=== PATIENT | female | born 2000 | race Caucasian/White ===

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

== ENCOUNTER 2018-03-23 15:36 | Emergency (ER) | payer BC ==
--- NOTE | 2018-03-23 16:52 | EDPHY ---
H & P Time Seen by Provider: 03/23/18 16:39 HPI/ROS: CHIEF COMPLAINT: Shortness of breath HISTORY OF PRESENT ILLNESS: Patient is a 18-year-old female who presents emergency department with shortness of breath since 09/27/2016. At that time she was diagnosed with mononucleosis. She subsequently developed the bacterial pneumonia. She was treated with antibiotics. She was subsequently diagnosed with bronchitis. She has had ongoing shortness of breath since that time. She is scheduled for primary care physician visit on Wednesday. She was seen at urgent care on 03/21/2018 and had a chest x-ray. This was negative. She was told that her incentive spirometry reading was low and she was placed on an albuterol inhaler. She states this helped a little bit. Patient denies fevers or chills. No abdominal pain. No chest pain. The patient has no leg pain or swelling. No recent travel. REVIEW OF SYSTEMS: 10 systems were reveiwed and are negative with the exception of the elements mentioned in the history of present illness. Past Medical/Surgical History: Includes mononucleosis, pneumonia Social history: The patient does not smoke. Smoking Status: Never smoked Physical Exam: 36.8, 105/64, 83, 16, 100% on room air GENERAL: Well-appearing, in no acute distress, alert. HEENT: Eyes normal to inspection, normal pharynx, no signs of dehydration. Normal NECK: Normal, supple. RESPIRATORY: Clear to auscultation bilaterally, no rales, rhonchi or wheezing. Normal CVS: Regular rate and rhythm, no rubs, murmurs, or gallops. ABDOMEN: Soft, nontender, nondistended, no organomegaly. BACK: Normal to inspection, no CVA tenderness. SKIN: Normal color, no rash, warm, dry. No pallor. EXTREMITIES: No pedal edema, no calf tenderness, no Homans sign or cords, no joint swelling. NEURO/PSYCH: Alert and oriented, normal mood and affect. Constitutional: Initial Vital Signs Temperature (C) 36.8 C 03/23/18 15:38 Heart Rate 83 03/23/18 15:38 Respiratory Rate 16 03/23/18 15:38 Blood Pressure 105/64 03/23/18 15:38 O2 Sat (%) 100 03/23/18 15:38 O2 Delivery Mode Room Air Allergies/Adverse Reactions: ibuprofen Allergy (Verified 11/02/17 15:15) Home Medications: Medication Instructions Recorded Mario Iud 11/02/17 predniSONE 20 mg PO DAILY 4 Days tab 03/23/18 Medical Decision Making ED Course/Re-evaluation: In the emergency department I discussed possible etiologies with the patient. I answered all her questions. I feel the most appropriate action is to have the patient follow up with pulmonology. She should also keep her appointment with her primary care physician on Wednesday. Patient was given prednisone 60 mg orally. She will be given a course of prednisone on discharge. She will return with worsening symptoms. Differential Diagnosis: My differential includes but is not limited to chronic bronchitis, reactive airway disease, pneumonia, PE Patient had a negative chest x-ray 2 days ago. I will be she needs repeat chest x-ray today. I think pulmonary embolus is unlikely. She has had no recent travel. No leg pain or swelling. She is not tachycardic. She has normal oxygen saturation. Patient has no acute respiratory distress on exam. Departure - Departure Disposition: Home, Routine, Self-Care Clinical Impression: Dyspnea Qualifiers: Dyspnea type: unspecified Qualified Code(s): R06.00 - Dyspnea, unspecified Condition: Good Instructions: Dyspnea (ED) Additional Instructions: You been given contact information for Dr. Menjivar. You can see any of the pulmonary physicians in his practice. Keep your appointment with your primary care physician on Wednesday. Referrals: Humble Menjivar MD [Medical Doctor] - 5-7 days, if not improved Prescriptions: predniSONE 20 mg PO DAILY 4 Days tab
[2018-03-23] MEDS ORDERED: predniSONE 20 MG TAB PO ONE (16:55)
[2018-03-23 17:07] VITALS: BP 118/69
== END 2018-03-23 17:06 | disposition home or self-care (01) ==
DX: R06.00 Dyspnea, unspecified (principal); Z87.01 Personal history of pneumonia (recurrent)
CPT/HCPCS: J7512